=== PATIENT | male | born 1935 | race Caucasian/White ===

== ENCOUNTER 2017-12-07 01:23 | Inpatient (IN) | payer MEDICARE ==
[2017-12-07] MEDS ORDERED: Acetaminophen 500 MG TAB ONE (01:31)
[2017-12-07 02:57] LABS: Lactic Acid 3.2 mmol/L (0.5-2.2)
[2017-12-07] MEDS ORDERED: Morphine 2 MG/ML SYRINGE ONE (03:21)
[2017-12-07] MEDS ORDERED: Ondansetron ODT 4 MG TAB SL PRN (04:10)
[2017-12-07] MEDS ORDERED: Ondansetron HCl/PF 4 MG/2 ML Vial IVP PRN ×2 (04:10→13:22)
[2017-12-07] MEDS ORDERED: Morphine 2 MG/ML SYRINGE SLOW IVP PRN ×2 (04:10→13:53)
[2017-12-07 04:48] VITALS: BMI 26.2
[2017-12-07] MEDS: Piperacillin/Tazobactam 3.375 GM in Sodium Chloride 0.9% 100 ML IVPB SCH ×4 (05:08→20:01)
[2017-12-07] MEDS: Dextrose 5 %-0.45 % NaCl 1,000 ML IV SCH ×2 (05:09→16:09)
[2017-12-07] MEDS ORDERED: Glycopyrrolate 0.2 MG/ML 5 ML SYRINGE ONE (07:18)
[2017-12-07] MEDS ORDERED: Lidocaine 1% PF 5 ML VIAL ONE (07:18)
[2017-12-07] MEDS ORDERED: Ondansetron HCl/PF 4 MG/2 ML Vial ONE (07:18)
[2017-12-07] MEDS ORDERED: Succinylcholine Chloride 20 MG/ML 10 ml SYRINGE FS ONE (07:18)
[2017-12-07] MEDS ORDERED: Dexamethasone 20 MG/5 ML VIAL ONE (07:18)
[2017-12-07] MEDS ORDERED: Propofol 200 MG/20 ML VIAL ONE (07:18)
[2017-12-07] MEDS ORDERED: PHENYLEPHRINE-NS 100 MCG/ML 10 ML SYRINGE ONE (07:18)
[2017-12-07] MEDS ORDERED: Bupivacaine/Epinephrine 0.25% 30 ML VIAL ONE (10:09)
[2017-12-07] MEDS ORDERED: HYDROmorphone 0.5 MG/0.5 ML SYRINGE ONE (10:25)
[2017-12-07] MEDS ORDERED: Fentanyl 250 MCG/5 ML VIAL ONE (10:25)
--- NOTE | 2017-12-07 10:54 | HP ---
CHIEF COMPLAINT: Right sided abdominal pain. HISTORY: Mr. De Luna is an 82-year-old man, who developed abdominal pain around noon yesterday, it was sort of central at that time, but became much worse and by 8:00 it was unbearable, so he came to his local emergency room. He underwent a CT scan, which came back positive for appendicitis. He was noted to be much more tender in the right lower quadrant than elsewhere. He was transferred to [place] and admitted for IV antibiotics and a short interval laparoscopic appendectomy and he has been on antibiotics. Since his admission, the pain is somewhat better, he had not had any fevers, chills , nausea or vomiting during this hospitalization. He had one similar episode of pain in the past, wh ich was felt to be due to a bowel obstruction, but ultimately he was told that everything was normal. He has never had any abdominal surgeries and this was back in 2009. PAST MEDICAL HISTORY: Mild hypertension, GERD, and basal cell skin cancer. PAST SURGICAL HISTORY: Eye surgery, left shoulder surgery and removal of basal cell, no abdominal nieto rgeries. OUTPATIENT MEDICATIONS: Lisinopril. ALLERGIES: No known drug allergies. FAMILY HISTORY: Noncontributory. SOCIAL HISTORY: He does not smoke, drink, or use illicit drugs. 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 He is quite active. REVIEW OF SYSTEMS: Ten-system review of systems is negative except per HPI. PHYSICAL EXAMINATION: VITAL SIGNS: Normal since admission. He reports that he had a low grade fever in [place] prior to transfer. GENERAL: Reveals a healthy appearing older gentleman in no acute distress. He appears younger than his stated age. He is not flushed or toxic in appearance. He is not jaundiced or icteric. HEENT: Unremarkable. NECK: Supple, without lymphadenopathy or thyroid nodules. HEART: Regular in its rate and rhythm without murmurs, rubs, or gallops. LUNGS: Clear to auscultation bilaterally. ABDOMEN: Soft and slightly distended. No palpable masses or hernias. He is very tender to palpatio n in the right lower quadrant with some guarding. Mildly tender in the right upper quadrant and left lower quadrant, nontender in the left upper quadrant. EXTREMITIES: Warm and well perfused without edema. NEUROLOGIC: No focal deficits. PSYCHIATRIC: Alert, oriented, and appropriate. LABORATORY DATA: White count is normal. Electrolytes are unremarkable. CT, the patient has some ca lcified gallstones, no biliary dilatation is noted. His appendix is enlarged to 12.27 mm with some p eriappendiceal stranding. ASSESSMENT: Acute appendicitis. I have recommended laparoscopic appendectomy for symptomatic relief . The inherent risks of surgery include but are not limited to bleeding, infection, risks of anesthe elyssa, damage to nearby structures including bowel and blood vessels, need for other procedures and nee d for open surgery. In addition, the patient has incidentally noted gallstones on his CT. He has GE RD, but no clear biliary colic symptoms. I will discuss with him the potential of performing laparos copic cholecystectomy under the same anesthesia if he so desires. Inherent risks of this procedure i nclude the same as for laparoscopic appendectomy. He would require likely an additional port or two and risk of injury to common bile duct and liver and other structures in that area are also possible.
[2017-12-07] MEDS ORDERED: HYDROmorphone 2 MG/ML VIAL SLOW IVP PRN (13:22)
[2017-12-07] MEDS ORDERED: Promethazine HCl 25 MG/ML VIAL IM PRN (13:22)
[2017-12-07] MEDS ORDERED: Promethazine HCl 25 MG/ML VIAL SLOW IVP PRN (13:22)
[2017-12-07] MEDS ORDERED: Pantoprazole 40 MG VIAL IVP SCH (14:00)
[2017-12-07] MEDS: Acetaminophen 1,000 MG in Premix Bag 1 BAG IVPB SCH ×2 (15:25→20:01)
[2017-12-07] MEDS: D5 1/2 NS w/20 mEq KCL 1,000 ML IV SCH ×2 (16:09→23:17)
[2017-12-08] MEDS: HYDROcodone/Acetaminophen 7.5/325 mg Tablet PO PRN ×2 (00:45→20:28)
[2017-12-08] MEDS: Acetaminophen 1,000 MG in Premix Bag 1 BAG IVPB SCH ×3 (03:45→15:36)
[2017-12-08] MEDS: Piperacillin/Tazobactam 3.375 GM in Sodium Chloride 0.9% 100 ML IVPB SCH ×4 (03:45→20:29)
[2017-12-08] MEDS: Morphine 2 MG/ML SYRINGE SLOW IVP PRN (05:48)
[2017-12-08 08:49] LABS: #Eosinphils 0.2 thou/uL (0.0-0.7); #Lymphocytes 1.7 thou/uL (1.20-3.40); #Monocytes 0.8 thou/uL (0.11-0.59); #Neutrophils 6.8 thou/uL (1.40-6.50); %Basophils 0.2 % (0.0-1.0); %Eosinophils 1.9 % (0.0-10.0); %Lymphocytes 18.1 % (21.0-51.0); %Monocytes 8.6 % (0.0-10.0); %Neutrophils 71.2 % (42.0-75.0); Hemoglobin 11.8 g/dL (14.0-18.0); Mean Corpuscular HGB CONC 33.1 g/dL (32.0-36.0); Mean Corpuscular Hemoglobin 32.5 pg (27.0-31.0); Mean Corpuscular Volume 98.4 fl (80.0-94.0); Mean Platelet Volume 6.8 fL (7.4-10.4); Platelet Count 184 thou/uL (130-400); Red Blood Cell (RBC) Count 3.62 mill/uL (4.70-6.10); White Blood Cell (WBC) Count 9.5 thou/uL (4.8-10.8)
[2017-12-08 09:07] LABS: ALT (SGPT) 32 U/L (8-55); AST (SGOT) 36 U/L (5-34); Albumin 3.4 g/dL (3.4-4.8); Alkaline Phosphatase 43 U/L (40-150); Anion Gap 10 mmol/L (10-20); BUN (Urea Nitrogen) 12 mg/dL (8.4-25.7); Bilirubin, Total 2.2 mg/dL (0.2-1.2); Calc. Creatinine Clearance 78 mL/min (70-130); Calcium 8.4 mg/dL (7.8-10.44); Carbon Dioxide 23 mmol/L (23-31); Chloride 107 mmol/L (98-107); Estimated GFR-MDRD 75; Globulin 2.6 g/dL (2.4-3.5); Glucose 115 mg/dL (83-110); Sodium 136 mmol/L (136-145)
[2017-12-08] MEDS: D5 1/2 NS w/20 mEq KCL 1,000 ML IV SCH ×2 (09:16→15:40)
[2017-12-08] MEDS: Pantoprazole 40 MG VIAL IVP SCH (09:17)
--- NOTE | 2017-12-08 13:48 | PRG ---
DATE OF SERVICE: 12/08/2017 SUBJECTIVE: Mr. De Luna is feeling better today than he was yesterday. His abdominal pain is dimin ished and pain medications are working for him. His RAVIN put out 205 mL of serosanguineous fluid. He is growing 2 gram negative rods from his culture. White count is 9.5 and electrolytes are unremarkab le. His total bilirubin is slightly elevated at 2.2, AST is 36 and ALT is 32. His incisions are selam an, dry, and intact and he is less tender in the right lower quadrant than he was yesterday. He has not passed any gas yet. ASSESSMENT AND PLAN: Status post laparoscopic appendectomy for perforated appendicitis and laparosco pic cholecystectomy for symptomatic gallstones. He is doing well overall, but still has an ileus rel ated to his appendicitis. I am going to leave him on clear liquids for now if he is tolerating that. Once he is passing gas, we will advance diet. He is still on scheduled antibiotics which we will c ontinue, pending culture results. I think that his mildly elevated bilirubin is just due to the ileu s and postoperative state, but we will keep an eye on this with repeat labs in the morning.
[2017-12-09] MEDS: D5 1/2 NS w/20 mEq KCL 1,000 ML IV SCH ×3 (01:06→15:45)
[2017-12-09] MEDS: Piperacillin/Tazobactam 3.375 GM in Sodium Chloride 0.9% 100 ML IVPB SCH ×4 (01:59→22:32)
[2017-12-09 05:34] LABS: #Eosinphils 0.3 thou/uL (0.0-0.7); #Lymphocytes 1.4 thou/uL (1.20-3.40); #Monocytes 0.9 thou/uL (0.11-0.59); #Neutrophils 5.9 thou/uL (1.40-6.50); %Basophils 0.5 % (0.0-1.0); %Eosinophils 3.8 % (0.0-10.0); %Lymphocytes 16.8 % (21.0-51.0); %Monocytes 10.2 % (0.0-10.0); %Neutrophils 68.7 % (42.0-75.0); Hemoglobin 12.5 g/dL (14.0-18.0); Mean Corpuscular HGB CONC 32.7 g/dL (32.0-36.0); Mean Corpuscular Volume 97.9 fl (80.0-94.0); Mean Platelet Volume 7.8 fL (7.4-10.4); Platelet Count 197 thou/uL (130-400); RBC Distribution Width 11.9 % (11.5-14.5); Red Blood Cell (RBC) Count 3.91 mill/uL (4.70-6.10); White Blood Cell (WBC) Count 8.6 thou/uL (4.8-10.8)
[2017-12-09] MEDS: Ondansetron HCl/PF 4 MG/2 ML Vial IVP PRN ×2 (07:40→15:41)
[2017-12-09] MEDS: Pantoprazole 40 MG VIAL IVP SCH ×2 (07:43→22:32)
[2017-12-09 07:45] LABS: ALT (SGPT) 35 U/L (8-55); AST (SGOT) 32 U/L (5-34); Albumin 3.6 g/dL (3.4-4.8); Alkaline Phosphatase 52 U/L (40-150); Anion Gap 10 mmol/L (10-20); BUN (Urea Nitrogen) 9 mg/dL (8.4-25.7); Bilirubin, Direct 0.6 mg/dL (0.1-0.3); Bilirubin, Total 1.7 mg/dL (0.2-1.2); Calc. Creatinine Clearance 87 mL/min (70-130); Calcium 8.9 mg/dL (7.8-10.44); Carbon Dioxide 22 mmol/L (23-31); Chloride 106 mmol/L (98-107); Estimated GFR-MDRD 84; Globulin 2.9 g/dL (2.4-3.5); Glucose 110 mg/dL (83-110); Potassium 4.1 mmol/L (3.5-5.1); Protein, Total 6.5 g/dL (5.8-8.1); Sodium 134 mmol/L (136-145)
[2017-12-09] MEDS: Morphine 2 MG/ML SYRINGE SLOW IVP PRN (10:14)
--- NOTE | 2017-12-09 20:16 | PRG ---
DATE OF SERVICE: 12/09/2017 SUBJECTIVE: Mr. De Luna is feeling a little better today. He has passed a small amount of gas, but has had problems with nausea. He is afebrile. His vital signs are okay. White count is normal and electrolytes are unremarkable. Bilirubin has come down to 1.7 and is primarily indirect, consistent with cholestasis. His incisions are clean, dry, and intact, but his abdomen is distended and tympan itic with diminished bowel sounds. ASSESSMENT: Status post laparoscopic appendectomy and laparoscopic cholecystectomy. The patient had perforated appendicitis and resulting peritonitis and now has subsequent ileus as result of his dise ase process. He is tolerating sips of clears, but I encouraged him to stop drinking clears if his na usea returns. He is ambulating frequently.
[2017-12-09] MEDS ORDERED: Mag-Al 1200 mg/1200 mg/30 ML UDCUP PO PRN (20:31)
[2017-12-09] MEDS: Enoxaparin Sodium 40 MG/0.4 ML SYRINGE SC SCH (22:32)
[2017-12-09] MEDS: HYDROcodone/Acetaminophen 7.5/325 mg Tablet PO PRN (22:47)
[2017-12-10] MEDS: D5 1/2 NS w/20 mEq KCL 1,000 ML IV SCH ×4 (00:31→23:49)
[2017-12-10] MEDS: Piperacillin/Tazobactam 3.375 GM in Sodium Chloride 0.9% 100 ML IVPB SCH ×4 (03:36→20:24)
[2017-12-10] MEDS ORDERED: Sodium Chloride 0.9% 10 ML ONE (08:45)
[2017-12-10] MEDS: HYDROcodone/Acetaminophen 7.5/325 mg Tablet PO PRN ×2 (08:47→20:27)
[2017-12-10] MEDS: Pantoprazole 40 MG VIAL IVP SCH ×2 (08:48→20:25)
--- NOTE | 2017-12-10 14:49 | PRG ---
DATE OF SERVICE: 12/10/2017 SUBJECTIVE: Mr. De Luna is feeling better today. I made him n.p.o. last night because he was havin g severe heartburn. Today, his heartburn has resolved and he is not having any nausea at the moment. He is passing small amounts of gas, but still feels somewhat distended. Vital signs have been norm al. His RAVIN output yesterday was 400, but only 50, so far this shift and urine output is brisk. Abdo men is still distended and tympanitic, although I do hear a few bowel sounds today. His incisions ar e clean and dry and his RAVIN output is serous. ASSESSMENT: Ileus due to peritonitis from perforated appendicitis, slowly resolving. I will start h im back on clear liquids and write for some Ensure as well. If he tolerates that, he is ambulating f requently.
[2017-12-10] MEDS: Enoxaparin Sodium 40 MG/0.4 ML SYRINGE SC SCH (20:25)
[2017-12-11] MEDS: Piperacillin/Tazobactam 3.375 GM in Sodium Chloride 0.9% 100 ML IVPB SCH ×4 (03:44→20:42)
[2017-12-11] MEDS: D5 1/2 NS w/20 mEq KCL 1,000 ML IV SCH ×2 (03:49→17:51)
[2017-12-11 04:53] LABS: ALT (SGPT) 42 U/L (8-55); AST (SGOT) 43 U/L (5-34); Albumin 3.3 g/dL (3.4-4.8); Alkaline Phosphatase 57 U/L (40-150); Anion Gap 9 mmol/L (10-20); BUN (Urea Nitrogen) 7 mg/dL (8.4-25.7); Bilirubin, Total 1.3 mg/dL (0.2-1.2); Calc. Creatinine Clearance 83 mL/min (70-130); Calcium 8.9 mg/dL (7.8-10.44); Carbon Dioxide 26 mmol/L (23-31); Chloride 104 mmol/L (98-107); Estimated GFR-MDRD 80; Globulin 2.6 g/dL (2.4-3.5); Glucose 96 mg/dL (83-110); Potassium 4.2 mmol/L (3.5-5.1); Protein, Total 5.9 g/dL (5.8-8.1); Sodium 135 mmol/L (136-145)
[2017-12-11 05:13] LABS: Band 1 % (5-11); Eosinophils 10 % (0-10); Hemoglobin 11.8 g/dL (14.0-18.0); Lymphocytes 33 % (21-51); MDiff Complete? YES; Mean Corpuscular HGB CONC 32.8 g/dL (32.0-36.0); Mean Corpuscular Hemoglobin 32.7 pg (27.0-31.0); Mean Corpuscular Volume 99.5 fl (80.0-94.0); Monocytes 13 % (0-10); Neutrophil 43 % (42-75); Platelet Count 257 thou/uL (130-400); RBC Distribution Width 11.7 % (11.5-14.5); Red Blood Cell (RBC) Count 3.61 mill/uL (4.70-6.10); White Blood Cell (WBC) Count 5.1 thou/uL (4.8-10.8)
[2017-12-11] MEDS: Pantoprazole 40 MG VIAL IVP SCH ×2 (08:25→20:43)
[2017-12-11] MEDS: Ondansetron HCl/PF 4 MG/2 ML Vial IVP PRN ×2 (14:02→17:50)
[2017-12-11] MEDS: HYDROcodone/Acetaminophen 7.5/325 mg Tablet PO PRN (18:37)
[2017-12-11] MEDS: Enoxaparin Sodium 40 MG/0.4 ML SYRINGE SC SCH (20:43)
[2017-12-12] MEDS: Piperacillin/Tazobactam 3.375 GM in Sodium Chloride 0.9% 100 ML IVPB SCH ×4 (03:27→20:42)
[2017-12-12] MEDS: Pantoprazole 40 MG VIAL IVP SCH ×2 (08:56→20:42)
[2017-12-12] MEDS: D5 1/2 NS w/20 mEq KCL 1,000 ML IV SCH (16:55)
--- NOTE | 2017-12-12 18:16 | PDOC.OP ---
Operative Note - Operative Note Operative Note: PROCEDURE: Laparoscopic appendectomy with washout and drain placement, laparoscopic cholecystectomy SURGEON: Chaz Neumann M.D. DATE OF PROCEDURE: 12/07/2017 PREOPERATIVE DIAGNOSIS: Appendicitis, symptomatic cholelithiasis POSTOPERATIVE DIAGNOSIS: Appendicitis, perforated, and symptomatic cholelithiasis HISTORY: Patient is an 82-year-old man who presented to the emergency room with acute onset of right lower quadrant pain. He was found on CT scan to have appendicitis. He was also incidentally noted to have gallstones and on further questioning had a history of postprandial pain and nausea especially with greasy foods consistent with biliary colic. His bile duct was normal caliber and his LFTs were normal. Recommendation was made to proceed with laparoscopic appendectomy with laparoscopic cholecystectomy under the same anesthesia. FINDINGS: Perforated appendicitis with generalized peritonitis but no abscess formation. Chronically distended appearing gallbladder containing stones. DESCRIPTION OF PROCEDURE: After informed consent was obtained and appropriate antibiotics continued, the patient was taken to the operating room and placed in the supine position and general endotracheal anesthesia was administered. The bladder was decompressed with a Tran catheter and the abdomen was prepped and draped in the standard sterile fashion. Local anesthesia was infused to the skin and subcutaneous tissues superior to the umbilicus. A transverse skin incision was made and a Veress needle placed into the abdominal cavity and carbon dioxide gas insufflated without difficulty. Opening pressure was less than 5. Carbon dioxide gas was insufflated to an intra-abdominal pressure 15 and the patient tolerated this well. The Veress needle was withdrawn and a Nibbe port advanced under direct laparoscopic vision into the abdominal cavity. Two additional ports were placed in the suprapubic and right lateral abdomen under direct laparoscopic vision after local anesthesia was infused at these sites. The appendix was identified and appeared inflamed with a visible perforation near the base. The small bowel loops and that the cine appeared reactively inflamed and there was some slightly cloudy fluid in the pelvis which was suctioned out and sent for Gram stain and culture. There was no focal abscess. The end of the appendix was not visible as this was located retrocecally.. The appendix was grasped by the mesoappendix and elevated. The peritoneum was incised laterally allowing the appendix and cecum to be rotated medially. The mesoappendix was then sequentially ligated and divided down to the base of the appendix, which was normal in appearance and was clearly seen to be at the confluence of the tenia. Two Endoloops were placed around the base of the appendix, below the level of the perforation, and the appendix was divided between these Endoloops, placed into an EndoCatch bag and drawn out through the suprapubic incision. The suprapubic trocar was then replaced and the operative site was easily irrigated to clear. The entire abdomen was then copiously irrigated with 6 L of warm saline. Attention was then turned to the laparoscopic cholecystectomy. The gallbladder was examined and appeared slightly white walled but otherwise normal without significant adhesions. Attempts were made to grasp the fundus using the suprapubic port but the instrument would not reach up to this level. Local anesthesia was infused to the skin and subcutaneous tissues at the epigastric and right upper quadrant sites and trocars were placed under direct vision of the laparoscope. The fundus of the gallbladder was grasped and retracted superiorly. The infundibulum was grasped and retracted laterally. The serosa was stripped inferiorly at the level of the neck of the gallbladder exposing the cystic duct and artery which were traced clearly to their insertion in the gallbladder. Critical view of safety was obtained and the cystic duct and artery were clipped and divided between clips. The gallbladder was then dissected free of the gallbladder bed using hook electrocautery. Prior to complete removal of the gallbladder from the gallbladder bed, the area of the cystic duct and artery stumps was examined. The clips were in good position completely across these structures and there was no bleeding and no leakage of bile. The gallbladder was then placed into an EndoCatch bag and drawn out through the suprapubic incision. The suprapubic trocar was replaced and the operative site easily irrigated to clear. There was no significant bleeding or spillage of bile. A RAVIN drain was placed through the suprapubic port and drawn out through the right lateral port. The end of the drain was placed down the right paracolic gutter and into the pelvis and the drain was secured to the skin with a nylon suture. The suprapubic trocar was removed and the fascia closed under direct laparoscopic vision with a 0 Vicryl suture on a GraNee needle in a [id number] manner with excellent technical result. The epigastric and right upper quadrant trochars were then removed and hemostasis verified. Carbon dioxide gas was desufflated through the umbilical trocar which was then removed. The skin incisions were irrigated and additional local anesthesia infused at each site. The skin was closed with 4-0 subcuticular Monocryl sutures and Dermabond dressings were placed. The patient was extubated and taken to the recovery room in good condition. Estimated blood loss was minimal. Specimens are appendix, peritoneal fluid for Gram stain and culture, and gallbladder. There were no complications.
[2017-12-12] MEDS ORDERED: traMADol HCl 50 MG TAB PO PRN ×2 (18:33)
--- NOTE | 2017-12-12 18:33 | PDOC.GSPN ---
Surgery Progress Note: Subj - Subjective Narrative: Subjective: Mr. De Luna is feeling much better today. He has not had any nausea since yesterday. He is passing more gas and does not feel distended. His pain is minimal and he is ambulating in the servin and tolerating his clear liquids. Objective: Afebrile with normal vital signs. RAVIN drainage is serous and incisions are clean dry and intact. Bowel sounds are improved and he is less distended. Assessment/plan: Status post laparoscopic appendectomy and laparoscopic cholecystectomy with anticipated ileus due to perforated appendicitis. This appears to be resolving clinically so we will advance his diet. If he tolerates this he will likely be able to be discharged home tomorrow. Surgery Progress Note: Obj - Vital signs Vital signs: Vital Signs - Most Recent Temp Pulse Resp BP Pulse Ox 98.4 F 68 15 144/80 H 95 12/12/17 15:26 12/12/17 15:26 12/12/17 15:26 12/12/17 15:26 12/12/17 15:26 Surgery Progress Note: Results - Labs Result Diagrams: 12/11/17 03:09 12/11/17 03:09
[2017-12-12] MEDS: HYDROcodone/Acetaminophen 7.5/325 mg Tablet PO PRN (19:52)
[2017-12-12] MEDS: Enoxaparin Sodium 40 MG/0.4 ML SYRINGE SC SCH (20:42)
[2017-12-13] MEDS: Piperacillin/Tazobactam 3.375 GM in Sodium Chloride 0.9% 100 ML IVPB SCH ×2 (03:05→09:58)
[2017-12-13 04:48] LABS: ALT (SGPT) 62 U/L (8-55); AST (SGOT) 64 U/L (5-34); Albumin 3.4 g/dL (3.4-4.8); Alkaline Phosphatase 108 U/L (40-150); Anion Gap 11 mmol/L (10-20); BUN (Urea Nitrogen) 7 mg/dL (8.4-25.7); Bilirubin, Total 1.1 mg/dL (0.2-1.2); Calc. Creatinine Clearance 76 mL/min (70-130); Calcium 8.8 mg/dL (7.8-10.44); Carbon Dioxide 25 mmol/L (23-31); Chloride 101 mmol/L (98-107); Estimated GFR-MDRD 73; Globulin 2.7 g/dL (2.4-3.5); Glucose 89 mg/dL (83-110); Potassium 3.9 mmol/L (3.5-5.1); Protein, Total 6.1 g/dL (5.8-8.1); Sodium 133 mmol/L (136-145)
[2017-12-13] MEDS: Pantoprazole 40 MG VIAL IVP SCH (09:58)
[2017-12-13 13:07] VITALS: BP 134/79; TEMP 98.1
== END 2017-12-13 15:20 | disposition home or self-care (01) | DRG 339 ==
LOC: ERS 01:23 → ERHOLD 01:34 → SURG B 04:18
PROVIDERS: ADMIT Surgery; ATTEND Surgery
PROC: 0DTJ4ZZ Resection of Appendix, Percutaneous Endoscopic Approach (ICD-10-PCS; principal; 2017-12-07)
PROC: 0FT44ZZ Resection of Gallbladder, Percutaneous Endoscopic Approach (ICD-10-PCS; 2017-12-07)
DX: K35.3 Acute appendicitis with localized peritonitis (principal); K56.7 Ileus, unspecified; K80.10 Calculus of gallbladder with chronic cholecystitis without obstruction; I10 Essential (primary) hypertension; K21.9 Gastro-esophageal reflux disease without esophagitis; R12 Heartburn
CPT/HCPCS: 36415; 80053; 82248; 83605; 85025; 87070; 87077; 87186; 87205; 88304; 96361; 96374; A4216; C9113; J0131; J1100; J1170; J1650; J2001; J2270; J2405; J2543; J2704; J3010; J3480; J7042; J7050

== ENCOUNTER 2019-06-23 10:21 | Inpatient (IN) | payer MEDICARE ==
[2019-06-23] MEDS ORDERED: Fentanyl 100 MCG/2 ML VIAL ONE ×4 (11:01→16:27)
[2019-06-23] MEDS ORDERED: Ondansetron PF 4 MG/2 ML Vial ONE (11:02)
[2019-06-23 11:31] LABS: #Eosinphils 0.1 thou/uL (0.0-0.7); #Lymphocytes 1.6 thou/uL (1.20-3.40); #Monocytes 1.4 thou/uL (0.11-0.59); #Neutrophils 7.8 thou/uL (1.40-6.50); %Basophils 0.3 % (0.0-1.0); %Eosinophils 0.5 % (0.0-10.0); %Lymphocytes 14.8 % (21.0-51.0); %Monocytes 12.6 % (0.0-10.0); %Neutrophils 71.8 % (42.0-75.0); Hemoglobin 12.8 g/dL (14.0-18.0); Mean Corpuscular HGB CONC 33.6 g/dL (32.0-36.0); Mean Corpuscular Hemoglobin 32.3 pg (27.0-31.0); Mean Corpuscular Volume 96.1 fL (78.0-98.0); Mean Platelet Volume 6.8 fL (7.4-10.4); Platelet Count 236 thou/uL (130-400); RBC Distribution Width 11.7 % (11.5-14.5); Red Blood Cell (RBC) Count 3.96 mill/uL (4.70-6.10); White Blood Cell (WBC) Count 10.8 thou/uL (4.8-10.8)
[2019-06-23 11:42] LABS: INR-International Normal Ratio 1.1; PTT 31.7 SEC (22.9-36.1); Prothrombin Time 14.5 SEC (12.0-14.7)
--- NOTE | 2019-06-23 11:47 | RAD ---
Exam: XR Hip Lt 2-3 View HISTORY: Injury to left hip. COMPARISON: 06/22/2019 obtained at [facility]. FINDINGS: There is a mildly impacted subcapital left femoral neck fracture again seen with slight apex lateral angulation of fracture fragments. No dislocation is seen, and there is no additional fracture identified. IMPRESSION: Overall stable alignment of the mildly impacted and slightly angulated subcapital left femoral neck f racture.
[2019-06-23 11:57] LABS: ALT (SGPT) 23 U/L (8-55); AST (SGOT) 35 U/L (5-34); Albumin 4.4 g/dL (3.4-4.8); Alkaline Phosphatase 71 U/L (40-150); Anion Gap 12 mmol/L (10-20); BUN (Urea Nitrogen) 19 mg/dL (8.4-25.7); Bilirubin, Total 2.8 mg/dL (0.2-1.2); Calc. Creatinine Clearance 0 mL/min (70-130); Carbon Dioxide 23 mmol/L (23-31); Chloride 104 mmol/L (98-107); Estimated GFR-MDRD Greater than 90; Globulin 2.5 g/dL (2.4-3.5); Glucose 106 mg/dL (83-110); Potassium 4.3 mmol/L (3.5-5.1); Protein, Total 6.9 g/dL (5.8-8.1); Sodium 135 mmol/L (136-145)
[2019-06-23] MEDS ORDERED: Dextrose 50% Abboject 50 ML SYRINGE SLOW IVP PRN (12:22)
[2019-06-23] MEDS ORDERED: Ondansetron PF 4 MG/2 ML Vial IVP PRN (12:22)
[2019-06-23] MEDS ORDERED: HumaLOG 300 UNITS/3 ML VIAL SC PRN (12:22)
[2019-06-23] MEDS ORDERED: Dextrose 5% in Water 1,000 ML IV PRN (12:22)
--- NOTE | 2019-06-23 12:58 | HP ---
HISTORY OF PRESENT ILLNESS: This is an 83-year-old gentleman, who came in to the ER yesterday for left hip pain after a mechanical fall at home. The patient reports he was trying to tie his shoe, lost his balance and fell, on ground-level fall. He did not hit his head or did not lose consciousness. This was the first time he fell. He lives at home by himself and he mobilizes pretty well with no cane or walker. He works in a [employer] organization two times a week. Upon arrival in the ER yesterday, his GCS was 15. Vitals were stable. On x-ray, the fracture nondisplaced yesterday. Today, he was called back for subcapital left femur fracture minimal displaced and he got admitted. Orthopedic will take him to the OR right after this dictation. PAST MEDICAL HISTORY: The patient has a past medical history of reflux and hypertension. PAST SURGICAL HISTORY: Left shoulder surgery. SOCIAL HISTORY: The patient denies alcohol. Denies drug use. Denies smoking. ALLERGIES: NO KNOWN ALLERGIES. PHYSICAL EXAMINATION: GENERAL: The patient is lying down in bed comfortable with no acute distress. Pain scale is 1 to 2/10. VITAL SIGNS: Heart rate is 81, blood pressure 147/76, respiratory rate 19, temperature 98, O2 saturation 96% on room air. HEENT: Atraumatic. No bruising. No bleeding. NECK: Atraumatic. Trachea is midline. No bruising. CHEST: Symmetric. Chest rise equal bilaterally. No bruising. No step-off. No pain to palpation. No crepitus. Lungs are clear bilaterally. HEART: Regular rate and rhythm. ABDOMEN: Soft and nondistended. EXTREMITIES: Neurovascularly intact x4. Left hip range of motion limited due to pain. NEUROLOGIC: GCS 15. No focal neurologic deficits. LABORATORY DATA: X-ray impression is overall stable alignment of mildly impacted and slightly angulated subcapital left femoral neck fracture. Laboratory shows white count 10.8 and hemoglobin 12.8. Chemistry; sodium 135, potassium 4.3, creatinine is 0.78. ASSESSMENT: 1. Status post mechanical ground-level fall. 2. Left hip fracture. PLAN: Pain control. Initiate DVT and gastritis prophylaxis. The patient will be taken to the OR this afternoon per Orthopedic. Job ID: [id number] [facility]
[2019-06-23] MEDS ORDERED: CEFAZOLIN 2 GM in Premix Bag 1 BAG IVPB SCH (13:00)
--- NOTE | 2019-06-23 13:22 | CON ---
DATE OF CONSULTATION: HISTORY OF PRESENT ILLNESS: We were asked by Trauma in the ER to see patient. The patient was in his normal state of health and he was going to [employer] to have some coffee. He leaned over to tie his shoes, unfortunately yesterday and kind of little dizzy and fell to the ground. Yesterday, he had x-rays of the hip and it was a nondisplaced fracture. Today, it has moved a little bit. He is in quite a bit more pain. He is a very active individual. He is very independent and unfortunately he is struggling right now with a fair amount of pain. He is answering all the questions well. He is alert and oriented. He did not lose consciousness and again as before, he has had a bout of this lightheadedness, dizziness, in the past. He denies any chest pain or shortness of breath, though. He has good sensations down the left lower extremity into the foot and he is moving his foot well. PAST MEDICAL HISTORY: The patient is quite healthy. He takes only OTC allergy medications, otherwise, no known drug allergies. SURGERIES: Appendix, gallbladder, and a left biceps repair. SOCIAL HISTORY: Still independently lives on his own. No alcohol or nicotine products on a daily basis. He may have a beer or two a year. No illicit drugs. FAMILY HISTORY: For this visit is noncontributory. REVIEW OF SYSTEMS: His only complaint at this point is the left hip pain and the two or three bouts of dizziness. Rest of review of systems is negative. PHYSICAL EXAMINATION: GENERAL: Well-nourished, well-developed male, alert, pleasant, no acute distress in room 15, on a gurney in the emergency room. He is a pleasant, oriented male, but struggling with some pain. HEENT: Normal exam. Speech clear. Face symmetric. Eyes tracking well. NECK: Supple. Trachea midline. RESPIRATORY: No distress. Breathing is 16 respirations per minute. EXTREMITIES: Upper extremities equal size, shape, symmetry normal, bulk and tone. Lower extremity, both lower extremities are equal size, shape, symmetry normal, bulk and tone. DP and PT pulses are equal and symmetric. He does have a significant amount of hip pain with and without movement and is quite tender to palpation. ASSESSMENT: Fall with ensuing hip fracture yesterday, now displaced today and much more painful. PLAN: I spoke with the patient, went over the risks and benefits of surgery versus not doing surgery. I explained the surgical procedure of doing a hemiarthroplasty. The patient understands the risks, benefits, his questions, concerns have been addressed and answered, and he is amenable to go forth with surgery. Per Trauma, he is stable. I told the patient we will try and get him on the surgery schedule this afternoon and get him fixed up. He is happy with the plan. For Dr. Ramy Juarez. Job ID: [id number]
[2019-06-23] MEDS ORDERED: Bacitracin Zinc Ointment 30 gm TUBE ONE (14:16)
[2019-06-23] MEDS ORDERED: traMADol HCl 50 MG TAB PO PRN (17:41)
[2019-06-23] MEDS ORDERED: Gabapentin 100 MG CAP PO PRN (17:41)
[2019-06-23] MEDS ORDERED: Ondansetron HCl/PF 4 MG/2 ML Vial IVP PRN (17:54)
[2019-06-23] MEDS ORDERED: HYDROmorphone 2 MG/ML VIAL SLOW IVP PRN (17:54)
[2019-06-23] MEDS ORDERED: Promethazine HCl 25 MG/ML VIAL SLOW IVP PRN (17:54)
[2019-06-23] MEDS ORDERED: Promethazine HCl 25 MG/ML VIAL IM PRN (17:54)
[2019-06-23] MEDS ORDERED: Morphine Sulfate 2 MG/ML SYRINGE SLOW IVP PRN (17:54)
[2019-06-23] MEDS ORDERED: PACU-Morphine 4MG/ML VIAL SLOW IVP PRN (17:54)
[2019-06-23] MEDS ORDERED: Ibuprofen 200 MG TAB PO SCH (18:00)
[2019-06-23] MEDS ORDERED: Acetaminophen 325 MG TAB PO SCH (18:00)
--- NOTE | 2019-06-23 19:21 | RAD ---
EXAM: 2 views of the left hip HISTORY: Left hip fracture status post arthroplasty COMPARISON: 06/23/2019 at 11:06 AM FINDINGS: 2 views of the left hip shows the patient is status post left hip arthroplasty without west hardware lucency or fracture. Air in the soft tissues and overlying miller are from recent surgery. Moderate degenerative changes are seen in the right hip. IMPRESSION: Status post left hip arthroplasty without evidence of complication.
[2019-06-23] MEDS: Acetaminophen 325 MG TAB PO SCH (20:42)
[2019-06-23] MEDS: traMADol HCl 50 MG TAB PO PRN (20:43)
[2019-06-23] MEDS: Ibuprofen 200 MG TAB PO SCH (20:43)
[2019-06-23] MEDS: Senokot S 8.6-50 MG TAB PO SCH (20:43)
[2019-06-23] MEDS ORDERED: Famotidine/PF 20 mg/2ml Vial SLOW IVP SCH (21:00)
[2019-06-23 21:04] VITALS: BMI 25.3
[2019-06-23] MEDS: CEFAZOLIN 2 GM in Premix Bag 1 BAG IVPB SCH (23:23)
--- NOTE | 2019-06-24 03:13 | PRG ---
DATE OF SERVICE: 06/24/2019 SUBJECTIVE: Patient was admitted today, status post ground level fall which he sustained a left hip fracture. Patient was able to undergo left hip hemiarthroplasty today, which he tolerated well, though postoperatively, the patient did have issue with urinary retention requiring in and out catheterization. Otherwise, patient's pain is controlled and he is tolerating a diet at this time. OBJECTIVE: VITAL SIGNS: Stable. Patient is afebrile. GENERAL: The patient is resting comfortably in bed. He was asleep when I arrived, but awaken to verbal stimuli. States he has no complaints at this time. LUNGS: Clear to auscultation bilaterally. HEART: Regular rate and rhythm. ABDOMEN: Soft, flat with active bowel sounds. EXTREMITIES: Neurovascularly intact. Postop dressing is clean, dry, and intact. ASSESSMENT: 1. Status post ground level fall. 2. Left hip fracture, status post left hemiarthroplasty. 3. Urinary retention. PLAN: Plan will be to continue supportive care in the morning. Begin physical and occupational therapy. Transition of all oral pain medications and await placement decision. Job ID: [id number]
[2019-06-24] MEDS: Acetaminophen 325 MG TAB PO SCH ×4 (03:36→20:38)
[2019-06-24] MEDS: Ibuprofen 200 MG TAB PO SCH ×4 (03:36→20:37)
[2019-06-24 07:28] LABS: #Lymphocytes 1.4 thou/uL (1.20-3.40); #Monocytes 1.6 thou/uL (0.11-0.59); #Neutrophils 11.5 thou/uL (1.40-6.50); %Basophils 0.2 % (0.0-1.0); %Eosinophils 0.1 % (0.0-10.0); %Lymphocytes 9.8 % (21.0-51.0); %Monocytes 10.9 % (0.0-10.0); Hemoglobin 11.5 g/dL (14.0-18.0); Mean Corpuscular HGB CONC 33.8 g/dL (32.0-36.0); Mean Corpuscular Hemoglobin 32.8 pg (27.0-31.0); Mean Corpuscular Volume 97.1 fL (78.0-98.0); Mean Platelet Volume 6.9 fL (7.4-10.4); Platelet Count 218 thou/uL (130-400); RBC Distribution Width 11.8 % (11.5-14.5); White Blood Cell (WBC) Count 14.6 thou/uL (4.8-10.8)
[2019-06-24] MEDS: CEFAZOLIN 2 GM in Premix Bag 1 BAG IVPB SCH ×2 (08:27→16:08)
[2019-06-24] MEDS: Polyethylene Glycol 3350 17 GM Packet PO SCH (08:28)
[2019-06-24] MEDS: traMADol HCl 50 MG TAB PO PRN ×3 (08:28→22:13)
[2019-06-24] MEDS: Senokot S 8.6-50 MG TAB PO SCH ×2 (08:28→20:37)
[2019-06-24] MEDS: Bisacodyl 10 MG SUPP PR SCH (09:42)
--- NOTE | 2019-06-24 11:39 | OP ---
DATE OF PROCEDURE: 06/23/2019 PREOPERATIVE DIAGNOSIS: Left femoral neck fracture, displaced. POSTOPERATIVE DIAGNOSIS: Left femoral neck fracture, displaced. PROCEDURE PERFORMED: Left hip hemiarthroplasty. ANESTHESIA: General. EDITOR TRADE JOURNAL: Sophia Foote PA-C IMPLANTS: DePuy Dundy size 7 stem with a 28 x 55 bipolar cup and an Articul/SHABANA +5 femoral head. ESTIMATED BLOOD LOSS: 200 mL. COMPLICATIONS: None. DRAINS: None. SPECIMEN: None. OUTCOME: Satisfactory hemiarthroplasty with stable hip. INDICATIONS: The patient is an 83-year-old gentleman status post ground level fall at home sustaining a left femoral neck fracture with displacement. The patient was initially seen in the [place] [facility], where the x-ray was not appreciated. Upon evaluation by the radiologist to became apparent that he did have a nondisplaced femoral neck fracture and as such, was asked to present to the [place] [facility] for evaluation. I have discussed with the patient risks and benefits of the procedure, including but not limited to bleeding, infection, nerve injury, DVT, PE, loss of limb or life. He appears to understand and does wish to proceed. Informed consent has been obtained. DESCRIPTION OF PROCEDURE: The patient was brought to the operating room and a time-out performed, followed by induction of general anesthesia. Next, he was positioned in right lateral decubitus position and a sterile prep and drape was performed in the left lower extremity. Next, a curvilinear incision was made centered over the greater trochanter. After skin was sharply incised, dissection was carried down to the underlying tensor fascia and fascia jagjit. This structure was incised in-line with the skin incision and then, a Charnley retractor was placed within the wound. Dissection was then carried down in the trochanteric bursa was swept off the short external rotators. An elevator was passed under the abductors and then the piriformis as well as superior and inferior gemelli were released from the posterior aspect of the femur with the piriformis tagged. Once displaced posteriorly, the capsule was identified. A T-capsulotomy was performed and then the femoral head was removed without difficulty. Excess bony fragments were also removed from the acetabulum. The femoral neck was then cut approximately 1 cm proximal to the greater trochanter. Once cut, there was found to still be a slight area of comminution distal to this cut; however, I could not appreciate any tracking of the fracture into the calcar region. Next, the proximal femur was prepared first with a T-handle awl, followed by progressive T-handle awls and a lateralizing reamer. Broaching was started at size 5, continued up to size 7, that showed excellent stability. A trial reduction was performed and the +5 head gave good stability of the hip. Next, the trial components were removed. The wound was irrigated with 5 L of normal saline using Pulsavac. Next, the final size 7 stem was introduced without difficulty. Once some fully engaged, the bipolar head was then introduced. The hip was found to be quite stable. Next, wound closure was performed. #2 Vicryl was used to close the capsule as well as reattached the short external rotators. #1 Vicryl was used for the fascia jagjit and tensor fascia followed by 0 Vicryl for the Jenniffer fascia, 2-0 Vicryl subcutaneously, miller for the skin. Xeroform gauze and tape dressing was applied to the thigh and the patient was transferred to recovery room in the stable condition. There were no complications. The patient tolerated the procedure well. Job ID: [id number]
--- NOTE | 2019-06-24 13:40 | PRG ---
DATE OF SERVICE: 06/24/2019 SUBJECTIVE: Mr. Spencer is an 83-year-old male, who came into the ER yesterday after ground level mechanical fall. The patient sustained left hip fracture. He underwent ORIF of left hip fracture with ortho yesterday. Postop, the patient is doing good. Pain is well controlled. He developed no fever or shortness of breath. Vital has been stable; however, last night he had retention and he was ordered in- and out-catheterization one time. We discontinue Tran this morning and follow up on a postvoid bladder scan, and he tolerated with his regular diet. His vital signs have been stable. Otherwise, there was no concern. OBJECTIVE: GENERAL: The patient lying down in bed, comfortable, with no acute distress. VITAL SIGNS: Today, temperature 97.5, heart rate 78, respiratory rate 20, O2 saturation 94% on room air, and blood pressure 133/76. LUNGS: Clear bilaterally. HEART: Regular rate and rhythm. ABDOMEN: Soft and nondistended. EXTREMITIES: Dressing from the left hip is dry, clean, and intact. Neurovascularly intact x4. NEUROLOGIC: No focal neurology deficits. ASSESSMENT: 1. Status post mechanical ground level fall. 2. Left hip fracture, status post open reduction and internal fixation of left hip fracture. 3. Benign prostate hypertrophy. 4. BPH and chronic retention. PLAN: Continue supportive care. Continue pain control. Initiate aspirin for DVT prophylaxis, encourage working with PT/OT and manager case management will be working with the patient for placement either skill facility or working for his rehabilitation placement. Start Flomax 0.4 mg HS PO for BPH and retention Patient was seen and evaluated with Dr Fleming on round this morning Job ID: [id number] [facility]
--- NOTE | 2019-06-24 16:52 | EKG ---
Test Reason : PREOP Blood Pressure : / mmHG Vent. Rate : 084 BPM Atrial Rate : 084 BPM P-R Int : 178 ms QRS Dur : 100 ms QT Int : 360 ms P-R-T Axes : 017 045 021 degrees QTc Int : 425 ms Normal sinus rhythm Normal ECG When compared with ECG of 31-MAY-2010 08:11, No significant change was found Confirmed by DR. Mehrdad LEONARD ([id number]) on 06/24/2019 4:52:32 PM Referred By: AMBER Confirmed By:DR. Mehrdad LEONARD
[2019-06-24] MEDS: Aspirin 81 mg Enteric Coated Tablet PO SCH (20:37)
[2019-06-24] MEDS ORDERED: Tamsulosin HCl 0.4 MG CAP PO SCH (21:00)
--- NOTE | 2019-06-25 01:40 | PRG ---
DATE OF SERVICE: 06/25/2019 SUBJECTIVE: The patient is currently on the surgical floor. He is status post a ground level fall which he sustained a left hip fracture. The patient is postop day 1, status post left hip hemiarthroplasty. Tolerated this procedure well. He has been working with Physical and Occupational Therapy. His pain is controlled and he is tolerating a diet. OBJECTIVE: GENERAL: The patient is currently out of bed, standing and using his walker in his room. He is awake, alert, and oriented x3. Rudyard Coma Scale is 15. The patient states that he has no complaints at this time. HEENT: Unremarkable. LUNGS: Clear to auscultation with good inspiratory and expiratory effort. HEART: Regular rate and rhythm. ABDOMEN: Soft, flat, nontender with active bowel sounds. EXTREMITIES: Neurovascularly intact x4. Postop dressing is clean, dry, and intact. ASSESSMENT: 1. Status post ground level fall. 2. Status post left hip hemiarthroplasty after left hip fracture. 3. Urinary retention, resolved. PLAN: Plan will be to continue physical and occupational therapy, supportive care, and await placement decision. Job ID: [id number]
[2019-06-25] MEDS: Acetaminophen 325 MG TAB PO SCH ×3 (04:09→14:54)
[2019-06-25] MEDS: Ibuprofen 200 MG TAB PO SCH ×3 (04:09→14:54)
[2019-06-25] MEDS: Aspirin 81 mg Enteric Coated Tablet PO SCH (08:21)
[2019-06-25] MEDS: Senokot S 8.6-50 MG TAB PO SCH (08:21)
[2019-06-25] MEDS: traMADol HCl 50 MG TAB PO PRN ×2 (08:21→14:55)
[2019-06-25] MEDS: Polyethylene Glycol 3350 17 GM Packet PO SCH (08:21)
[2019-06-25 15:39] VITALS: BP 106/67; TEMP 98.2
[2019-06-25] MEDS: Bisacodyl 10 MG SUPP PR SCH (17:16)
--- NOTE | 2019-06-26 11:35 | DIS ---
DATE OF ADMISSION: 06/23/2019 DATE OF DISCHARGE: 06/25/2019 CONSULTS: Orthopedic Surgery, Ramy Juarez MD PROCEDURE PERFORMED: Left hip hemiarthroplasty. IMAGIN. Preop left hip x-ray: Overall stable alignment with a mildly impacted and slightly angulated subcapital left femoral neck fracture. 2. Postop left hip x-ray: Status post left hip arthroplasty without evidence of complication. PRIMARY DIAGNOSIS: Status post mechanical ground level fall, left hip fracture status post left hip hemiarthroplasty. SECONDARY DIAGNOSES: BPH, chronic urinary retention, hypertension, gastroesophageal reflux disease. DISCHARGE MEDICATIONS: 1. 650 mg acetaminophen p.o. q.i.d. 2. 81 mg aspirin p.o. b.i.d. 3. 100 mg gabapentin p.o. b.i.d. 4. 0.4 mg tamsulosin p.o. at bedtime. 5. 50 mg tramadol p.o. q.6 hours. DISCONTINUED MEDICATIONS: 1. Dulcolax. 2. 400 mg ibuprofen q.i.d. 3. DuoNeb. 4. Zofran. 5. 40 mg pantoprazole p.o. daily. 6. MiraLAX. 7. Senokot. HISTORY OF PRESENT ILLNESS/HOSPITAL COURSE: The patient is a high functioning 83-year-old male, who presented to the ED status post ground level fall after losing balance while tying a shoe. He was found to have left hip fracture as reported above. He was taken to the OR, where left hip hemiarthroplasty was performed. Afterwards, he continued to participate with PT/OT during the hospitalization pending inpatient rehab placement. The patient did have issues with urinary retention postop requiring straight catheterization. Afterwards, he continued to void normally. He tolerated his diet well throughout the hospitalization and maintained normal vital signs. PHYSICAL EXAMINATION: VITAL SIGNS: Temperature 97.8 Fahrenheit, pulse 74, respiratory rate 18, oxygen saturation 97% on room air, and blood pressure 117/76. GENERAL: The patient is resting comfortably in bed, denying pain at this time. HEENT: Unremarkable. CARDIAC: Regular rate and rhythm. RESPIRATORY: Clear to auscultation bilaterally. ABDOMEN: Soft, nontender. Positive bowel sounds. EXTREMITIES: Left hip postop bandaging in place, clean, dry, intact. The patient was seen and evaluated during rounds on the morning of discharge by Dr. Fleming. The patient was agreeable to current plan of care. DISPOSITION: Stable. DISCHARGE INSTRUCTIONS: 1. Location: Inpatient rehab. 2. Diet: Diabetic diet. 3. Activity: Weightbearing as tolerated. Orthopedic limitations. 4. Followup: Follow up with Dr. Juarez in 2 to 3 weeks, with primary care provider within 1 week. Job ID: [id number] [facility]
--- NOTE | 2019-06-27 13:29 | EKG ---
Test Reason : Blood Pressure : / mmHG Vent. Rate : 078 BPM Atrial Rate : 078 BPM P-R Int : 170 ms QRS Dur : 094 ms QT Int : 360 ms P-R-T Axes : 028 060 047 degrees QTc Int : 410 ms Normal sinus rhythm Normal ECG Confirmed by ANTHONY BUCK, JAMES ([id number]), editor farm journal GISSEL REAGAN ([id number]) on 06/27/2019 1:28:50 PM Referred By: Confirmed By:JAMES CRUZ MD
== END 2019-06-25 17:48 | DRG 470 ==
LOC: ERS 10:21 → SDC 14:09 → SURG B 19:56
PROVIDERS: ADMIT Surgery; ATTEND Surgery
PROC: 0SRS01Z Replacement of Left Hip Joint, Femoral Surface with Metal Synthetic Substitute, Open Approach (ICD-10-PCS; principal; 2019-06-23)
DX: S72.012A Unspecified intracapsular fracture of left femur, initial encounter for closed fracture (principal); W18.30XA Fall on same level, unspecified, initial encounter; Y93.89 Activity, other specified; I10 Essential (primary) hypertension; K21.9 Gastro-esophageal reflux disease without esophagitis; Z98.890 Other specified postprocedural states; Z90.49 Acquired absence of other specified parts of digestive tract; N40.1 Benign prostatic hyperplasia with lower urinary tract symptoms
CPT/HCPCS: 36415; 80053; 84484; 85025; 85610; 85730; 93005; 93010; 96374; 96375; 96376; G0390; J0690; J2405; J3010; S0028

== ENCOUNTER 2021-08-09 11:56 | Inpatient (IN) | payer MEDICARE ==
[2021-08-09] MEDS ORDERED: Nitroglycerin 0.4 MG TAB (25 Tab Bottle) SL PRN (14:16)
[2021-08-09] MEDS ORDERED: Acetaminophen 325 MG TAB PO PRN (14:16)
[2021-08-09] MEDS ORDERED: Aspirin Chewable 81 MG TAB PO SCH (14:45)
[2021-08-09 15:20] LABS: Troponin I 0.339 ng/mL (< 0.028)
[2021-08-09] MEDS ORDERED: Communication Order-Pharmacy FS SCH (19:15)
[2021-08-09] MEDS ORDERED: Sodium Chloride 0.65% Nasal 44 ML BOT EA NARE PRN ×2 (20:35→20:44)
[2021-08-09] MEDS: Rosuvastatin 20 MG TAB PO SCH (20:35)
[2021-08-09] MEDS ORDERED: Enoxaparin Sodium 40 MG/0.4 ML SYRINGE SC SCH (21:00)
[2021-08-10 05:30] LABS: #Basophils 0.1 thou/uL (0.0-0.2); #Eosinphils 0.2 thou/uL (0.0-0.7); #Lymphocytes 2.5 thou/uL (1.20-3.40); #Monocytes 0.8 thou/uL (0.11-0.59); %Basophils 1.2 % (0.0-1.0); %Eosinophils 3.2 % (0.0-10.0); %Lymphocytes 38.1 % (21.0-51.0); %Monocytes 12.3 % (0.0-10.0); %Neutrophils 45.2 % (42.0-75.0); Hemoglobin 12.4 g/dL (14.0-18.0); Mean Corpuscular HGB CONC 33.7 g/dL (32.0-36.0); Mean Corpuscular Hemoglobin 33.2 pg (27.0-31.0); Mean Corpuscular Volume 98.4 fL (78.0-98.0); Mean Platelet Volume 7.4 fL (7.4-10.4); Platelet Count 259 thou/uL (130-400); RBC Distribution Width 12.2 % (11.5-14.5); Red Blood Cell (RBC) Count 3.74 mill/uL (4.70-6.10); White Blood Cell (WBC) Count 6.5 thou/uL (4.8-10.8)
[2021-08-10 05:54] LABS: Anion Gap 13 mmol/L (10-20); BUN (Urea Nitrogen) 13 mg/dL (8.4-25.7); Calc. Creatinine Clearance 0 mL/min (70-130); Calcium 9.4 mg/dL (7.8-10.44); Carbon Dioxide 26 mmol/L (23-31); Cardiac Risk 4.6 (Less than 4.5); Chloride 105 mmol/L (98-107); Cholesterol 195 mg/dl (< 200 Desired); Glucose 98 mg/dL (83-110); HDL Cholesterol 42 mg/dL (>60 Neg Risk); LDL Cholesterol, Calculated 131 mg/dL; Potassium 4.1 mmol/L (3.5-5.1); Sodium 140 mmol/L (136-145); Triglycerides 111 mg/dL (Less than 150)
[2021-08-10] MEDS: Sodium Chloride 0.9% 1,000 ML IV SCH ×2 (06:15→16:42)
[2021-08-10] MEDS: Aspirin Chewable 81 MG TAB PO SCH (06:16)
[2021-08-10] MEDS ORDERED: Lidocaine 1% (PF) 30 ML VIAL ONE (09:11)
[2021-08-10] MEDS ORDERED: Iopamidol 370 76% 100 ML VIAL ONE (09:20)
[2021-08-10] MEDS ORDERED: Fentanyl 100 MCG/2 ML VIAL ONE (09:51)
[2021-08-10] MEDS ORDERED: Midazolam HCl 2 mg/2 ml Vial ONE (09:51)
[2021-08-10] MEDS ORDERED: Nitroglycerin 0.4 MG TAB (25 Tab Bottle) SL PRN (11:00)
[2021-08-10] MEDS ORDERED: Sodium Chloride 0.9% 200 ML IV PRN (11:00)
[2021-08-10] MEDS ORDERED: Communication Order-Pharmacy FS SCH (17:05)
[2021-08-10] MEDS: Rosuvastatin 20 MG TAB PO SCH ×2 (20:35→20:49)
[2021-08-10] MEDS ORDERED: Atorvastatin Calcium 40 MG TAB PO SCH (21:00)
[2021-08-10] MEDS ORDERED: Calcium Carbonate 500 MG ChewTAB PO SCH (22:07)
[2021-08-10] MEDS: Zolpidem Tartrate 5 MG TAB PO PRN (22:17)
[2021-08-11 05:15] LABS: #Eosinphils 0.2 thou/uL (0.0-0.7); #Lymphocytes 2.1 thou/uL (1.20-3.40); #Monocytes 0.8 thou/uL (0.11-0.59); #Neutrophils 3.5 thou/uL (1.40-6.50); %Basophils 0.3 % (0.0-1.0); %Eosinophils 2.6 % (0.0-10.0); %Lymphocytes 31.5 % (21.0-51.0); %Monocytes 12.9 % (0.0-10.0); %Neutrophils 52.8 % (42.0-75.0); Hemoglobin 11.8 g/dL (14.0-18.0); Mean Corpuscular HGB CONC 33.7 g/dL (32.0-36.0); Mean Corpuscular Hemoglobin 33.4 pg (27.0-31.0); Mean Corpuscular Volume 99.1 fL (78.0-98.0); Mean Platelet Volume 7.2 fL (7.4-10.4); Platelet Count 235 thou/uL (130-400); RBC Distribution Width 12.2 % (11.5-14.5); Red Blood Cell (RBC) Count 3.54 mill/uL (4.70-6.10); White Blood Cell (WBC) Count 6.6 thou/uL (4.8-10.8)
[2021-08-11 05:30] LABS: Anion Gap 12 mmol/L (10-20); BUN (Urea Nitrogen) 12 mg/dL (8.4-25.7); Calc. Creatinine Clearance 82 mL/min (70-130); Calcium 9.3 mg/dL (7.8-10.44); Carbon Dioxide 23 mmol/L (23-31); Chloride 108 mmol/L (98-107); Glucose 96 mg/dL (83-110); Potassium 3.8 mmol/L (3.5-5.1); Sodium 139 mmol/L (136-145)
[2021-08-11] MEDS: Sodium Chloride 0.9% 1,000 ML IV SCH (07:25)
[2021-08-11] MEDS: Aspirin Chewable 81 MG TAB PO SCH (08:13)
[2021-08-11] MEDS ORDERED: Metoprolol Tartrate 25 MG TAB PO SCH (09:00)
[2021-08-11] MEDS: Metoprolol Tartrate 25 MG TAB PO SCH ×2 (09:10→20:35)
[2021-08-11] MEDS ORDERED: Calcium Carbonate 500 MG ChewTAB PO SCH (20:30)
[2021-08-11] MEDS: Rosuvastatin 20 MG TAB PO SCH (20:35)
[2021-08-11] MEDS: Zolpidem Tartrate 5 MG TAB PO PRN (22:18)
[2021-08-12] MEDS: Metoprolol Tartrate 25 MG TAB PO SCH ×2 (08:37→19:34)
[2021-08-12] MEDS: Aspirin Chewable 81 MG TAB PO SCH (08:37)
[2021-08-12] MEDS: Rosuvastatin 20 MG TAB PO SCH (19:34)
[2021-08-12] MEDS: Zolpidem Tartrate 5 MG TAB PO PRN (21:08)
[2021-08-13] MEDS: Metoprolol Tartrate 25 MG TAB PO SCH ×2 (08:23→20:31)
[2021-08-13] MEDS: Aspirin Chewable 81 MG TAB PO SCH (08:23)
[2021-08-13] MEDS ORDERED: Artificial Tear Sol 15 ML BOT EA EYE PRN (19:44)
[2021-08-13] MEDS: Zolpidem Tartrate 5 MG TAB PO PRN (20:31)
[2021-08-13] MEDS: Rosuvastatin 20 MG TAB PO SCH (20:31)
[2021-08-13] MEDS ORDERED: Polyethylene Glycol OPTH DROP 15 ML BOT EA EYE PRN (22:05)
[2021-08-14] MEDS: Metoprolol Tartrate 25 MG TAB PO SCH (05:48)
[2021-08-14] MEDS ORDERED: Albumin 5% 500 ML ONE (09:24)
[2021-08-14] MEDS ORDERED: EPINEPHrine 1 MG/ML AMP ONE (09:24)
[2021-08-14] MEDS ORDERED: Dexamethasone 4 mg/ml Vial ONE (09:24)
[2021-08-14] MEDS ORDERED: Bupivacaine PF 0.5% 30 ML VIAL ONE (09:24)
[2021-08-14] MEDS ORDERED: Midazolam HCl 2 mg/2 ml Vial ONE (09:25)
[2021-08-14] MEDS ORDERED: Fentanyl 250 MCG/5 ML VIAL ONE (09:25)
[2021-08-14] MEDS ORDERED: Heparin 10,000 UNITS/1 ML VIAL 30,000 UNITS in Sodium Chloride 0.9% 1,000 ML FS SCH (09:45)
[2021-08-14] MEDS ORDERED: Sodium Chloride 0.9% 50 ML ONE (09:46)
[2021-08-14] MEDS ORDERED: CEFAZOLIN 2 GM, Admixture Fee 1 EACH in Sodium Chloride 0.9% 100 ML IVPB SCH (10:30)
[2021-08-14] MEDS ORDERED: Aminocaproic Acid 5 GM/20 ML VIAL ONE ×2 (10:36→10:45)
[2021-08-14] MEDS ORDERED: Protamine Sulfate 250 MG/25 ML VIAL ONE (10:45)
[2021-08-14] MEDS ORDERED: Magnesium Sulfate 1 GM/2 ML VIAL ONE (10:45)
[2021-08-14] MEDS ORDERED: Calcium Chloride 1 GM/10 ML Abboject SYRINGE ONE (10:45)
[2021-08-14] MEDS ORDERED: Lidocaine 2% PF 100 mg/5 ml Syringe ONE (10:45)
[2021-08-14] MEDS ORDERED: Rocuronium Bromide 10 MG/ML (10ML VIAL) ONE (10:45)
[2021-08-14] MEDS ORDERED: PHENYLEPHRINE-NS 100 MCG/ML 10 ML SYRINGE ONE ×3 (10:45→12:21)
[2021-08-14] MEDS ORDERED: Vecuronium 10 MG VIAL ONE (10:45)
[2021-08-14] MEDS ORDERED: Cardioplegic Soln 1,000 ML BAG ONE (10:45)
[2021-08-14] MEDS ORDERED: Thrombin 5000 UNITS/5 ML VIAL ONE (10:45)
[2021-08-14] MEDS ORDERED: Lidocaine 1% PF 5 ML VIAL ONE (10:45)
[2021-08-14] MEDS ORDERED: Mannitol 12.5 GM/50 ML ONE (10:45)
[2021-08-14] MEDS ORDERED: Heparin 30,000 units/30 ml VIAL ONE (10:45)
[2021-08-14] MEDS ORDERED: Papaverine 60 MG/2 ML VIAL ONE (10:45)
[2021-08-14] MEDS ORDERED: Sodium Bicarb 50 MEQ/50 ML Abboject 8.4% SYRINGE ONE (10:45)
[2021-08-14] MEDS ORDERED: Potassium Chloride 60 MEQ/30 ML VIAL ONE (10:45)
[2021-08-14] MEDS ORDERED: PROPOFOL 200 MG/20 ML VIAL ONE (10:45)
[2021-08-14] MEDS ORDERED: Heparin 5,000 UNITS/ML VIAL ONE (10:45)
[2021-08-14] MEDS ORDERED: Fentanyl 100 MCG/2 ML VIAL ONE (13:08)
[2021-08-14] MEDS ORDERED: Dexmedetomidine 200 MCG/2 ML VIAL ONE (13:08)
[2021-08-14] MEDS ORDERED: Bisacodyl 5 MG TAB PO PRN (13:48)
[2021-08-14] MEDS ORDERED: Nitroglycerin 50 MG/250 ML BOT 250 ML IVPB PRN (13:48)
[2021-08-14] MEDS ORDERED: Fentanyl 100 MCG/2 ML VIAL SLOW IVP PRN ×2 (13:48)
[2021-08-14] MEDS ORDERED: Acetaminophen 325 MG TAB PO PRN (13:48)
[2021-08-14] MEDS ORDERED: Post-Op Insulin Drip Protocol IVPB ONE (13:48)
[2021-08-14] MEDS ORDERED: D5 1/2 NS w/20 mEq KCL 1,000 ML IV SCH (13:48)
[2021-08-14] MEDS ORDERED: Ondansetron PF 4 MG/2 ML Vial IVP PRN (13:48)
[2021-08-14] MEDS ORDERED: hydrALAZINE 20 MG/ML VIAL SLOW IVP PRN (13:48)
[2021-08-14] MEDS ORDERED: Guaifenesin DM 100-10/5 ML UDCUP PO PRN (13:48)
[2021-08-14] MEDS ORDERED: Norepinephrine 8 MG/0.9% NS 250 ML IVPB PRN (13:48)
[2021-08-14] MEDS ORDERED: Potassium Chloride 20 MEQ/100 ML PREMIX BAG IVPB PRN (13:48)
[2021-08-14] MEDS ORDERED: Magnesium 2 GM/50 ML 2 GM in Premix Bag 1 BAG IVPB SCH (13:48)
[2021-08-14] MEDS ORDERED: Hetastarch 6% 500 ML 500 ML IVPB PRN (13:48)
[2021-08-14] MEDS ORDERED: Mag-Al 1200 mg/1200 mg/30 ML UDCUP PO PRN (13:48)
[2021-08-14] MEDS ORDERED: Bisacodyl 10 MG SUPP PR PRN (13:48)
[2021-08-14] MEDS ORDERED: Morphine 4 MG/ML VIAL SLOW IVP PRN (14:22)
[2021-08-14 14:27] LABS: #Eosinphils 0.2 thou/uL (0.0-0.7); #Lymphocytes 2.2 thou/uL (1.20-3.40); %Basophils 0.1 % (0.0-1.0); %Lymphocytes 13.6 % (21.0-51.0); %Monocytes 6.1 % (0.0-10.0); %Neutrophils 79.2 % (42.0-75.0); Hemoglobin 10.7 g/dL (14.0-18.0); Mean Corpuscular HGB CONC 33.8 g/dL (32.0-36.0); Mean Corpuscular Hemoglobin 33.2 pg (27.0-31.0); Mean Corpuscular Volume 98.2 fL (78.0-98.0); Platelet Count 191 thou/uL (130-400); RBC Distribution Width 12.1 % (11.5-14.5); Red Blood Cell (RBC) Count 3.21 mill/uL (4.70-6.10); White Blood Cell (WBC) Count 16.5 thou/uL (4.8-10.8)
[2021-08-14] MEDS ORDERED: HUMULIN R 100 UNITS in Sodium Chloride 0.9% 100 ML IVPB SCH (14:30)
[2021-08-14] MEDS ORDERED: Dextrose 50% Abboject 50 ML SYRINGE SLOW IVP PRN (14:30)
[2021-08-14] MEDS ORDERED: Lantus 1000 UNITS/10 ML VIAL SC PRN (14:30)
[2021-08-14] MEDS ORDERED: Dextrose 5% in Water 1,000 ML IV PRN (14:30)
[2021-08-14 14:35] LABS: INR-International Normal Ratio 1.2; Prothrombin Time 15.8 sec (12.0-14.7)
[2021-08-14 14:36] LABS: PTT 44.2 sec (22.9-36.1)
[2021-08-14] MEDS: Insulin Regular 300 UNITS/3 ML VIAL SC PRN ×2 (14:41→20:24)
[2021-08-14 14:55] LABS: Anion Gap 15 mmol/L (10-20); BUN (Urea Nitrogen) 14 mg/dL (8.4-25.7); Calc. Creatinine Clearance 84 mL/min (70-130); Calcium 9.8 mg/dL (7.8-10.44); Carbon Dioxide 21 mmol/L (23-31); Chloride 107 mmol/L (98-107); Glucose 145 mg/dL (83-110); Potassium 3.9 mmol/L (3.5-5.1); Sodium 139 mmol/L (136-145)
[2021-08-14 15:08] LABS: Actual Bicarbonate (HCO3a) 21.8 mEq/L (22-28); Base Excess (BEa) -2.9 mEq/L (-2.0 to +3.0); CO2 Tension 37.8 mmHg (35.0-45.0); Carboxyhemoglobin (COHb) 0.3 gm% (0.0-3.0); Hemoglobin (Hb) 10.9 g/dL (14.0-18.0); O2 Tension (PaO2), arterial 186.1 mmHg (> 60.0); Puncture Site Arterial Line; pH, Arterial 7.38 (7.35-7.45)
[2021-08-14] MEDS: CEFAZOLIN 2 GM in Premix Bag 1 BAG IVPB SCH (17:44)
[2021-08-14] MEDS: Ketorolac Tromethamine 30 MG/ML VIAL IVP SCH (17:45)
[2021-08-14 20:41] LABS: Hemoglobin 11.2 g/dL (14.0-18.0)
[2021-08-14 20:54] LABS: Actual Bicarbonate (HCO3a) 20.2 mEq/L (22-28); Base Excess (BEa) -4.5 mEq/L (-2.0 to +3.0); Calcium, Ionized (arterial) 1.18 mmol/L (1.12-1.30); Carboxyhemoglobin (COHb) 0.2 gm% (0.0-3.0); Hemoglobin (Hb) 11.4 g/dL (14.0-18.0); O2 Tension (PaO2), arterial 128.6 mmHg (> 60.0); Potassium - ABG Lab 4.07 mmol/L (3.70-5.30); Puncture Site Arterial Line; pH, Arterial 7.37 (7.35-7.45)
[2021-08-14] MEDS ORDERED: Famotidine/PF 20 mg/2ml Vial SLOW IVP SCH (21:00)
[2021-08-14] MEDS ORDERED: Atorvastatin Calcium 20 MG TAB PO SCH (21:00)
[2021-08-14 22:01] LABS: Potassium 4.2 mmol/L (3.5-5.1)
[2021-08-15] MEDS: Ketorolac Tromethamine 30 MG/ML VIAL IVP SCH ×4 (00:11→17:20)
[2021-08-15] MEDS: Insulin Regular 300 UNITS/3 ML VIAL SC PRN ×2 (00:23→04:39)
[2021-08-15] MEDS: CEFAZOLIN 2 GM in Premix Bag 1 BAG IVPB SCH (00:32)
[2021-08-15 03:37] LABS: #Lymphocytes 1.1 thou/uL (1.20-3.40); #Neutrophils 8.1 thou/uL (1.40-6.50); %Basophils 0.3 % (0.0-1.0); %Eosinophils 0.1 % (0.0-10.0); %Lymphocytes 10.6 % (21.0-51.0); %Neutrophils 78.9 % (42.0-75.0); Hemoglobin 9.9 g/dL (14.0-18.0); Mean Corpuscular Hemoglobin 33.3 pg (27.0-31.0); Mean Platelet Volume 7.2 fL (7.4-10.4); Platelet Count 171 thou/uL (130-400); RBC Distribution Width 12.1 % (11.5-14.5); Red Blood Cell (RBC) Count 2.96 mill/uL (4.70-6.10); White Blood Cell (WBC) Count 10.3 thou/uL (4.8-10.8)
[2021-08-15 03:57] LABS: Anion Gap 11 mmol/L (10-20); BUN (Urea Nitrogen) 19 mg/dL (8.4-25.7); Calc. Creatinine Clearance 72 mL/min (70-130); Calcium 8.8 mg/dL (7.8-10.44); Carbon Dioxide 23 mmol/L (23-31); Chloride 108 mmol/L (98-107); Glucose 132 mg/dL (83-110); Potassium 4.3 mmol/L (3.5-5.1); Sodium 138 mmol/L (136-145)
[2021-08-15] MEDS ORDERED: traMADol HCl 50 MG TAB PO PRN ×4 (06:54→12:31)
[2021-08-15] MEDS: Magnesium 2 GM/50 ML 2 GM in Premix Bag 1 BAG IVPB SCH (08:51)
[2021-08-15] MEDS: Aspirin 325 MG TAB PO SCH (08:51)
[2021-08-15] MEDS ORDERED: CEFAZOLIN 2 GM in Premix Bag 1 BAG IVPB SCH (09:00)
[2021-08-15] MEDS: CEFAZOLIN 2 GM in Sodium Chloride 0.9% 100 ML IVPB SCH ×2 (14:01→21:30)
[2021-08-15] MEDS: Atorvastatin Calcium 20 MG TAB PO SCH (20:40)
[2021-08-16] MEDS: Ketorolac Tromethamine 30 MG/ML VIAL IVP SCH ×5 (01:01→23:27)
[2021-08-16] MEDS: CEFAZOLIN 2 GM in Sodium Chloride 0.9% 100 ML IVPB SCH (05:30)
[2021-08-16] MEDS ORDERED: diphenhydrAMINE 25 MG CAP PO PRN (07:11)
[2021-08-16] MEDS ORDERED: Mineral Oil ENEMA PR PRN (07:11)
[2021-08-16] MEDS ORDERED: Guaifenesin DM 100-10/5 ML UDCUP PO PRN (07:11)
[2021-08-16] MEDS ORDERED: Nitroglycerin 0.4 MG TAB (25 Tab Bottle) SL PRN (07:11)
[2021-08-16] MEDS ORDERED: Milk Of Magnesia 30 ML UDCUP PO PRN (07:11)
[2021-08-16] MEDS ORDERED: Zolpidem Tartrate 5 MG TAB PO PRN (07:11)
[2021-08-16] MEDS ORDERED: Potassium Chloride 10 MEQ TAB PO SCH (08:00)
[2021-08-16] MEDS: Furosemide 40 MG TAB PO SCH (09:19)
[2021-08-16] MEDS: Aspirin 325 MG TAB PO SCH (09:20)
[2021-08-16] MEDS: Magnesium 2 GM/50 ML 2 GM in Premix Bag 1 BAG IVPB SCH (09:20)
[2021-08-16] MEDS: Atorvastatin Calcium 20 MG TAB PO SCH (20:22)
[2021-08-17 05:26] LABS: #Eosinphils 0.2 thou/uL (0.0-0.7); #Lymphocytes 2.1 thou/uL (1.20-3.40); #Monocytes 1.5 thou/uL (0.11-0.59); #Neutrophils 7.9 thou/uL (1.40-6.50); %Basophils 0.4 % (0.0-1.0); %Lymphocytes 17.4 % (21.0-51.0); %Monocytes 12.7 % (0.0-10.0); %Neutrophils 67.5 % (42.0-75.0); Mean Corpuscular HGB CONC 33.4 g/dL (32.0-36.0); Mean Corpuscular Hemoglobin 32.8 pg (27.0-31.0); Mean Corpuscular Volume 98.2 fL (78.0-98.0); Mean Platelet Volume 7.7 fL (7.4-10.4); Platelet Count 192 thou/uL (130-400); RBC Distribution Width 12.2 % (11.5-14.5); Red Blood Cell (RBC) Count 3.05 mill/uL (4.70-6.10); White Blood Cell (WBC) Count 11.8 thou/uL (4.8-10.8)
[2021-08-17] MEDS: Ketorolac Tromethamine 30 MG/ML VIAL IVP SCH (05:47)
[2021-08-17 05:50] LABS: Anion Gap 12 mmol/L (10-20); BUN (Urea Nitrogen) 23 mg/dL (8.4-25.7); Calc. Creatinine Clearance 71 mL/min (70-130); Calcium 8.5 mg/dL (7.8-10.44); Carbon Dioxide 22 mmol/L (23-31); Chloride 103 mmol/L (98-107); Glucose 102 mg/dL (83-110); Potassium 3.7 mmol/L (3.5-5.1); Sodium 133 mmol/L (136-145)
[2021-08-17] MEDS ORDERED: Diltiazem 125 MG in Sodium Chloride 0.9% 100 ML IVPB SCH (08:00)
[2021-08-17] MEDS: Furosemide 40 MG TAB PO SCH (08:28)
[2021-08-17] MEDS: Potassium Chloride 10 MEQ TAB PO SCH ×2 (08:28→17:31)
[2021-08-17] MEDS: Aspirin 325 MG TAB PO SCH (08:28)
[2021-08-17] MEDS: Amiodarone 200 MG TAB PO SCH ×2 (10:10→20:31)
[2021-08-17 13:54] VITALS: BMI 25.4
[2021-08-17] MEDS: Atorvastatin Calcium 20 MG TAB PO SCH (20:31)
[2021-08-18] MEDS: Aspirin 325 MG TAB PO SCH (09:00)
[2021-08-18] MEDS: Potassium Chloride 10 MEQ TAB PO SCH (09:01)
[2021-08-18] MEDS: Furosemide 40 MG TAB PO SCH (09:01)
[2021-08-18] MEDS: Amiodarone 200 MG TAB PO SCH (09:01)
[2021-08-18] MEDS ORDERED: Amiodarone 200 MG TAB PO SCH (15:00)
[2021-08-18 16:19] VITALS: BP 114/62; TEMP 97.2
== END 2021-08-18 16:05 | disposition swing bed (61) | DRG 234 ==
LOC: 2SW 11:56 → OBSVTOIN 21:12 → CCU 08-14 09:10 → 2NO 08-16 09:53
PROVIDERS: ADMIT Family Medicine; ATTEND Nurse Practitioner Family
PROC: 4A023N7 Measurement of Cardiac Sampling and Pressure, Left Heart, Percutaneous Approach (ICD-10-PCS; principal; 2021-08-10)
PROC: B2111ZZ Fluoroscopy of Multiple Coronary Arteries using Low Osmolar Contrast (ICD-10-PCS; 2021-08-10)
PROC: B2151ZZ Fluoroscopy of Left Heart using Low Osmolar Contrast (ICD-10-PCS; 2021-08-10)
PROC: 02100Z9 Bypass Coronary Artery, One Artery from Left Internal Mammary, Open Approach (ICD-10-PCS; 2021-08-14)
PROC: 021109W Bypass Coronary Artery, Two Arteries from Aorta with Autologous Venous Tissue, Open Approach (ICD-10-PCS; 2021-08-14)
PROC: 06BQ4ZZ Excision of Left Saphenous Vein, Percutaneous Endoscopic Approach (ICD-10-PCS; 2021-08-14)
PROC: 5A1221Z Performance of Cardiac Output, Continuous (ICD-10-PCS; 2021-08-14)
DX: I21.4 Non-ST elevation (NSTEMI) myocardial infarction (principal); E87.1 Hypo-osmolality and hyponatremia; Z20.822 Contact with and (suspected) exposure to COVID-19; G47.00 Insomnia, unspecified; D64.9 Anemia, unspecified; I49.3 Ventricular premature depolarization; E78.5 Hyperlipidemia, unspecified; I10 Essential (primary) hypertension; I25.10 Atherosclerotic heart disease of native coronary artery without angina pectoris; Z98.890 Other specified postprocedural states; Z79.899 Other long term (current) drug therapy; I48.91 Unspecified atrial fibrillation
CPT/HCPCS: 36415; 36416; 36430; 71045; 80048; 80061; 82805; 82947; 85025; 85610; 85730; 86850; 86900; 86901; 93005; 93010; 93306; 93458; 93798; 94002; J0171; J0690; J1100; J1642; J1644; J1650; J1815; J1885; J2001; J2150; J2250; J2440; J2704; J2720; J3010; J3370; J3475; J3480; J3490; J7050; P9045; Q9967; S0017; S0020; S0028